=== PATIENT | female | born 1990 | race Caucasian/White ===

== ENCOUNTER 2016-12-18 19:23 | Emergency (ER) | payer BC ==
[~2016-12-18] VITALS: Ht 162.6 cm; Wt 124.3 kg
[~2016-12-18 19:23] MED LIST: ENDOCET 5-3251 EACH PO; IBUPROFEN800 MG PO; MICROGESTIN FE1 EACH PO; PRENATAL TABLE1 EACH PO; PROAIR HFA8.5 GM IH; PROZAC40 MG PO; TYLENOL EXTRA500 MG PO; ZANTAC150 MG PO; ZOFRAN4 MG PO; ZYRTEC10 M3 PO
[2016-12-18 21:05] LABS: HEMATOCRIT 37.2 % (36.0-46.0); MCH 24.4 PG (29.0-34.0); MCHC 32.3 G/DL (30.0-36.0); MCV 75.8 FL (83-99); MEAN PLAT.VOLUME 9.5 uM^3 (9.5-12.4); PLATELET COUNT 439 K/uL (156-360); RED BLOOD COUNT 4.91 M/uL (3.80-5.20); WHITE BLOOD COUNT 12.8 K/uL (4.1-10.2)
[2016-12-18 21:13] LABS: CHLORIDE 105 mEq/L (99-109); POTASSIUM 4.5 mEq/L (3.7-5.4); SODIUM 136 mEq/L (136-147)
[2016-12-18 21:15] LABS: GLUCOSE 118 mg/dL (70-99)
[2016-12-18 21:17] LABS: ANION GAP 10 MEQ/L (2-14); TOTAL BILIRUBIN 0.2 mg/dL (0.0-1.0)
[2016-12-18 21:19] LABS: ALKALINE PHOSPHATASE 69 IU/L (3-129); GFR ESTIMATE (CALCULATED) > 59 mL/min/
[2016-12-18 21:20] LABS: UREA NITROGEN (BUN) 11 mg/dL (9-23)
[2016-12-18 21:28] LABS: QUANTITATIVE HCG < 4.0 MIU/ML
[2016-12-18 23:17] VITALS: BP 106/74
== END 2016-12-18 23:17 | disposition home or self-care (01) ==
LOC: EME 19:23
PROVIDERS: Emergency Medicine
DX: R00.0 Tachycardia, unspecified (principal); R00.2 Palpitations; Z83.2 Family history of diseases of the blood and blood-forming organs and certain disorders involving the immune mechanism; Z88.2 Allergy status to sulfonamides
CPT/HCPCS: 80053; 84443; 84702; 85027; 85379; 93005; 99281; 99284; J7030

== ENCOUNTER 2017-01-02 21:48 | Emergency (ER) | payer BC ==
[~2017-01-02] VITALS: Ht 160 cm; Wt 123.9 kg
[2017-01-02] MEDS ORDERED: NORCO 5/3251 TABLET PO (23:57)
[2017-01-03 00:07] VITALS: BP 154/107
== END 2017-01-03 00:36 | disposition home or self-care (01) ==
LOC: EME 21:48 → RME 21:48
DX: L73.2 Hidradenitis suppurativa (principal)
CPT/HCPCS: 99281; 99284